=== PATIENT | female | born 1970 | race Caucasian/White ===

== ENCOUNTER 2022-08-07 07:20 | Day surgery (SDC) | payer MEDICARE, OTHER, SELFPAY ==
[2022-08-07] VITALS (39 sets, daily range): BP systolic 110–172; BP diastolic 68–118; PULSE 71–96; RESP 12–22; TEMP 36.6–36.9; O2SAT 91–99; BMI 35.4
--- NOTE | 2022-08-07 07:49 | SUR.PREOP ---
home covid test negative
[2022-08-07] MEDS: LACTATED RINGERS 1000 ML 1,000 ML 100 ML IV (07:55)
[2022-08-07] MEDS: SODIUM CHLORIDE 0.9 % (FLUSH) 10 ML SYRINGE IVF (07:55)
[2022-08-07] MEDS: ONDANSETRON 2 MG/ML inj 4 MG IVP ×2 (08:38→11:57)
--- NOTE | 2022-08-07 08:39 | SUR.PREOP ---
TIME?OUT:?0835 PT/Britney PINTO RN/ Dre CORONEL CRNA VERIFICATION?OF?SURGICAL?SITE,?PROCEDURE,?AND?CONSENT OBTAINED?PRIOR?TO?INVASIVE?PROCEDURE.
[2022-08-07] MEDS: fentaNYL 100 MCG/2 ML inj IVP (08:43)
[2022-08-07] MEDS: MIDAZOLAM HCL 1 MG/ML inj IVP (08:43)
--- NOTE | 2022-08-07 09:47 | CRLHL7_ITS ---
For Patients: As a result of the Century Cures Act, medical imaging exams and procedure reports are released immediately into your electronic medical record. You may view this report before your referring provider. If you have questions, please contact your health care provider. INDICATION: Orthopedic intervention. TECHNIQUE: Fluoroscopic support provided for orthopedic intervention; 1 minutes and 20 seconds of fluoroscopy time utilized with 3 images archived. IMPRESSION: Fluoroscopic support for fibular internal fixation. Please see procedural note for further details. Dictated by Tom Thomason MD @ 08/13/2022 8:28:03 AM (Electronically Signed)
[2022-08-07] MEDS: CEFAZOLIN 2 GM INJ IVP (10:30)
--- NOTE | 2022-08-07 10:54 | P.NB_ITS ---
Nerve Block Nerve Block Time Seen by Provider: 10:00 Date Seen: 08/07/22 Type of block requested by surgeon for post-operative analgesia: adductor canal Side: left Time out performed: Yes Verification of patient name: Yes Verification of date of : Yes Site marking: site marked Name of person performing procedure: Madhu Sanches Continuous monitoring Was continuous monitoring of O2 sat, B/P, front desk monitor, recorded every 15 minutes?: Yes Procedure Checklist: sterile prep, needles and gloves Ultrasound guided. Images saved: Yes Medications given in 5ml increments after negative aspiration: Ropivicaine %: 0.5 mL: 15 Needle gauge: 20 Decadron (mg): 10 Patient tolerated procedure well: Yes Block Charges Block Charge (with Pro Fee): Femoral Nerve Use of Ultrasound Machine for Block: Yes- US Guidance/pain block
--- NOTE | 2022-08-07 10:56 | P.NB_ITS ---
Nerve Block Nerve Block Time Seen by Provider: 10:00 Date Seen: 08/07/22 Type of block requested by surgeon for post-operative analgesia: popliteal Side: left Time out performed: Yes Verification of patient name: Yes Verification of date of : Yes Site marking: site marked Name of person performing procedure: Madhu Sanches Continuous monitoring Was continuous monitoring of O2 sat, B/P, monitor car operator, recorded every 15 minutes?: Yes Procedure Checklist: sterile prep, needles and gloves Ultrasound guided. Images saved: Yes Medications given in 5ml increments after negative aspiration: Ropivicaine %: 0.5 mL: 15 Needle gauge: 20 Decadron (mg): 5 Block Charges Block Charge (with Pro Fee): Sciatic Nerve Use of Ultrasound Machine for Block: Yes- US Guidance/pain block
--- NOTE | 2022-08-07 10:59 | SUR.OPER ---
PATIENT QUESTIONS ANSWERED SATISFACTORILY PREOPERATIVELY.? PATIENT BROUGHT TO OR #3 PER CART AFTER THE BLOCK.? Patient positioned supine on OR #3 bed.? The perioperative?team supported arms bilaterally on arm boards.? Final approval of positioning by surgeon.?
--- NOTE | 2022-08-07 11:35 | PM.ORPRC ---
Procedure Note Date of procedure: 08/07/22 Procedure: SURGEON: Derrick Pace MD OFFSET PRINTER: CARMEN Christie PREOPERATIVE DIAGNOSIS: Left ankle Young B Fracture POSTOPERATIVE DIAGNOSIS: Left ankle Young B Fracture NAME OF OPERATION: ORIF ANESTHESIA: Spinal plus popliteal block ESTIMATED BLOOD LOSS: 0 mL COMPLICATIONS: None SPECIMENS: None DRAINS: None PREOPERATIVE ANTIBIOTICS: Ancef 1 gram INDICATIONS: The patient is a 51-year-old female who sustained a left ankle fracture. ORIF was recommended. The risks, benefits and expected outcomes were discussed in detail. These included but were not limited to: Infection, bleeding, injury to blood vessel or nerve, venous thromboembolism. All questions were answered to their satisfaction. Use of an dietetic assistant was necessary throughout the case for patient positioning and safety, soft tissue retraction and closure. PROCEDURE: A popliteal block was placed by anesthesia. Spinal anesthesia was administered. The lower extremity was prepped and draped in the usual sterile fashion. A guide pin was placed in the center of the distal fragment of the fibula, percutaneously. Its placement was confirmed with the image intensifier in multiple views. A stab incision was made around the guide pin. The opening Reamer was used. The guide pin was removed. The reduction finger was placed in the distal fragment. The distal fragment was held reduced. The reduction finger was taken across the fracture site. The longer, flexible guide pin was placed across the fracture, engaging the canal of the proximal fragment. The opening reamer was placed again, past the fracture site. The 3.2 mm reamer was used in the proximal fragment. We placed the Arthrex 3 mm x 130 mm intramedullary nail. The talons were deployed. We placed 2 screws in the distal fragment. The devulcanizer charger and screw guide were removed, the end cap was placed. This provides an anatomic reduction of the fibula with excellent fixation. This construct was imaged in the AP, mortise and lateral views and were felt to be well placed with an excellent reduction. The talus is nicely reduced under the tibial plafond. Abduction stress shows no widening through the syndesmosis or medial mortise. The wounds were irrigated with normal saline. The dietetic assistant closed the skin with a 4-0 Monocryl in a subcuticular fashion. Glue was used to seal the skin. The dietetic assistant placed a dry dressing and short leg Pascual Dukes splint. Sponge and needle counts were correct x 2. The patient tolerated the procedure well. There were no apparent complications. They were carefully transferred to the hospital bed and taken to the postanesthesia care unit in satisfactory condition. PLAN: The patient will be discharged to home. They will remain strict nonweightbearing on the lower extremity. They will continue to work on ice and elevation. They will follow up in the office in 2 weeks for a wound check and three views of the ankle out of the splint, prior to being seen, in preparation for a CAM walker, early weight-bearing and physical therapy.
--- NOTE | 2022-08-07 11:52 | W.ANESCHARGE ---
Anesthesia Charges Start Date/Time Anesthesia Start Date: 08/07/22 Anesthesia Start Time: 10:19 Stop Date/Time Anesthesia Stop Date: 08/07/22 Anesthesia Stop Time: 11:52 Summary Emergency: No
[2022-08-07] MEDS: fentaNYL 100 MCG/2 ML inj 50 MCG IVP ×5 (12:23→14:03)
[2022-08-07] MEDS: MEPERIDINE 25 MG/ML INJ 12.5 MG IVP (12:43)
[2022-08-07] MEDS: KETAMINE HCL 100 MG/ML inj 20 MG IV (13:06)
[2022-08-07] MEDS: ACETAMINOPHEN 1,000 MG/100 ML INJ 1000 MG IVPB (13:21)
[2022-08-07] MEDS: diphenhydrAMINE 50 MG/ML inj IVP (13:32)
[2022-08-07] MEDS: MORPHINE 2 MG/ML inj IVP (13:38)
[2022-08-07] MEDS: LACTATED RINGERS 1000 ML 1,000 ML 35 ML IV (13:49)
[2022-08-07] MEDS: MIDAZOLAM HCL 1 MG/ML inj 2 MG IVP (13:52)
--- NOTE | 2022-08-07 14:13 | W.PM.NB ---
Nerve Block Nerve Block Time Seen by Provider: 14:05 Date Seen: 08/07/22 Type of block requested by surgeon for post-operative analgesia: popliteal Side: left Time out performed: Yes Verification of patient name: Yes Verification of date of : Yes Site marking: site marked Name of person performing procedure: Madhu Sanches Continuous monitoring Was continuous monitoring of O2 sat, B/P, licensing and registration director, recorded every 15 minutes?: Yes Procedure Checklist: sterile prep, needles and gloves Ultrasound guided. Images saved: Yes Medications given in 5ml increments after negative aspiration: Lidocaine %: 2.0 mL: 15 Needle gauge: 20 Patient tolerated procedure well: Yes Block Charges Block Charge (with Pro Fee): Sciatic Nerve Use of Ultrasound Machine for Block: Yes- US Guidance/pain block
--- NOTE | 2022-08-07 15:32 | SUR.PHASEII ---
at 1500, Pt states pain is much better than before. I can't wiggle my toes, like I was able to before.
== END 2022-08-07 15:35 | disposition home or self-care (01) ==
PROVIDERS: PCP Family Medicine; Visit Provider Orthopaedic Surgery
PROC: (CPT 27792; principal; 2022-08-07 10:00)
DX: S82.892A Other fracture of left lower leg, initial encounter for closed fracture (principal)
CPT/HCPCS: 27792; 01480; 64445; 64447; 73600; 73610; 76000; 76942; A4580; C1713; C1776; J0131; J0690; J1100; J1200; J2175; J2250; J2270; J2400; J2405; J2704; J2795; J3010; J3490; J7120